=== PATIENT | female | born 1940 | race Caucasian/White ===

== ENCOUNTER 2020-05-11 09:21 | Outpatient (REF) | payer MEDICARE, SELFPAY ==
--- NOTE | 2020-05-11 | US_ITS ---
EXAMINATION: NONINVASIVE ASSESSMENT OF THE ARTERIES OF BOTH LOWER EXTREMITIES WITH PVR EXAM AND BILATERAL LOWER EXTREMITY DUPLEX CLINICAL INFORMATION: Peripheral vascular disease. TECHNIQUE: Ankle pulse volume recordings, ankle pressure measurements and ankle brachial indices were obtained of the lower extremity arterial system bilaterally in addition to duplex Doppler techniques with wave form analysis and measurement of velocities in the common femoral, profunda femoral, superficial femoral, popliteal and tibial arteries. The study was performed only at rest. COMPARISON: Previous exams most recent May 2019 FINDINGS: a) AT REST: RIGHT LE. The right ankle-brachial index is: 0.47 2. Right ankle pressure: Slightly decreased 3. Right ankle PVR waveform: Slightly dampened 4. Right direct duplex Doppler findings: There is evidence of atherosclerotic disease with vessel wall calcification. There is significant atherosclerotic plaque seen in the right common femoral artery. * Common femoral artery: 97 cm/s, Diastolic flow reversal: No * Superficial femoral artery (proximal, mid, distal): 40, 36 and 28 cm/s, Diastolic flow reversal: No * Popliteal artery: 30 cm/s, Diastolic flow reversal: No * Posterior tibial artery: Not seen. LEFT LE. The left ankle-brachial index is: 0.53 2. Left ankle pressure: slightly decreased 3. Left ankle PVR waveform: Slightly dampened 4. Left direct duplex Doppler findings: There is evidence of atherosclerotic disease with vessel wall calcification. There is significant plaque seen at the common femoral bifurcation/origin of the SFA and PFA. * Common femoral artery: 55 cm/s, Diastolic flow reversal: No * Superficial femoral artery (proximal, mid, distal): 40, 21 and 25 cm/s, Diastolic flow reversal: No * Popliteal artery: 22 cm/s, Diastolic flow reversal: No * Posterior tibial artery: Not seen. JASWINDER Reference: * >0.97-1.25 = normal - no significant arterial disease * 0.75-0.96 = mild peripheral arterial disease * 0.5-0.74 = moderate peripheral arterial disease * <0.50 = severe peripheral arterial disease US/US arterial duplex LE BI IMPRESSION: Right: The right JASWINDER is 0.47. This is decreased from 0.58 on most recent exam May 2019 suggestive of severe peripheral arterial disease. There is evidence of atherosclerotic disease with significant calcified plaque in the right common femoral artery. There are decreased peak systolic velocities and monophasic flow seen throughout the right lower extremity. Left: The left JASWINDER is 0.53. This is decreased from 0.78 most recent exam May 2019 suggestive of moderate to severe peripheral arterial disease. There is evidence of atherosclerotic disease with significant calcified plaque at the left common femoral bifurcation/SFA and PFA origin. There are decreased peak systolic velocities and monophasic flow seen throughout the left lower extremity.
== END 2020-05-11 09:22 | disposition home or self-care (01) ==
LOC: HO.US 09:21
PROVIDERS: PCP Internal Medicine; Visit Provider Surgery Vascular Surgery
DX: I73.9 Peripheral vascular disease, unspecified (principal)
CPT/HCPCS: 93923; 93925

== ENCOUNTER → 2020-05-25 13:52 | Outpatient (BNVA) | payer MEDICARE, SELFPAY | PROVIDERS: PCP Internal Medicine; Referring Provider Internal Medicine; Visit Provider Surgery Vascular Surgery | DX: I73.9 Peripheral vascular disease, unspecified (principal) | CPT/HCPCS: 99212 ==

== ENCOUNTER 2020-06-02 06:05 | Day surgery (SDC) | payer MEDICARE, BC, SELFPAY ==
[2020-06-02] VITALS (7 sets, daily range): BP systolic 138–157; BP diastolic 47–55; PULSE 52–62; RESP 14–21; TEMP 36.2–36.7; O2SAT 95–99; BMI 23.6
[2020-06-02 06:34] LABS: MANUAL DIFF FLAG NO
[2020-06-02 06:48] LABS: Prothrombin Time 11.7 SEC (10.8-13.0)
[2020-06-02 06:50] LABS: Basophils Absolute Auto 0.1 X10*3/uL (0.0-0.2); Basophils Percent Auto 0.8 % (0-2); Eosinophils Absolute Auto 0.3 X10*3/uL (0.0-0.4); Eosinophils Percent Auto 3.9 % (0-4); Hematocrit 40.1 % (37-47); Imm Gran Abs Auto 0.01 X10*3/uL (0.00-0.03); Imm Gran Pct Auto 0.1 % (0.0-0.4); Lymphocytes Absolute Auto 2.3 X10*3/uL (1.2-4.9); Lymphocytes Percent Auto 31.4 % (20-40); Mean Corpuscular HGB Conc 32.4 g/dl (31.0-35.0); Mean Corpuscular Hemoglobin 30.9 pg (27.0-33.0); Mean Corpuscular Volume 95.2 fL (80-98); Mean Platelet Volume 9.1 fL (9.4-12.3); Monocytes Absolute Auto 0.5 X10*3/uL (0.1-1.2); Monocytes Percent Auto 6.4 % (2-11); Neutrophils Absolute Auto 4.1 X10*3/uL (2.0-8.3); Neutrophils Percent Auto 57.4 % (45-73); Platelet Count 266 X10*3/uL (160-400); Red Blood Count 4.21 X10*6/uL (4.20-5.50); Red Cell Distribution Width 14.1 % (11.0-16.0); White Blood Count 7.2 X10*3/uL (4.8-10.8)
[2020-06-02 06:51] LABS: Partial Thromboplastin Time 31.5 SEC (24.1-38.0)
[2020-06-02 07:21] LABS: Anion Gap 13 (12-20); Blood Urea Nitrogen 16 mg/dL (9-16); Calcium 9.5 mg/dL (8.4-10.2); Carbon Dioxide 27 mmol/L (22-29); Chloride 105 mmol/L (96-108); Estimated Glomerular Filt Rate > 60; Glucose Random 124 mg/dL (60-115); Potassium 3.6 mmol/l (3.3-5.1); Sodium 141 mmol/L (135-145)
--- NOTE | 2020-06-02 10:09 | PC.NURSE ---
patient admitted to PACU at 0900 awake a&o. skin pwd see arteriogram flow sheet for pulse checks. right groin has glue and star closure no hematoma noted no bleeding noted. patient denies pain. 45 minutes into recovery able to obtain left posterior tibial pulse. neuro signs: oscar, hand grasp equal and strong, smile symetrical. able to barrios. continue to moniot closely. pt to be discharged [address] flores.
[2020-06-02] MEDS: Lidocaine HCl 1 % MPF 5 ML VIAL 10 ML SUBCUT (11:00)
[2020-06-02] MEDS: iohexoL 300 MG/ML 100 ML INFUS..BTL IV (11:00)
--- NOTE | 2020-06-02 11:45 | OP_ITS ---
SURGEON: Randy Osei MD INDICATIONS: Zunilda is an 79-year-old female with significant right lower extremity claudication. Her ABIs have progressively decreased. She now presents for endovascular intervention. Risks, benefits, and complications were discussed in detail with the patient. She understood and consented. PREOPERATIVE DIAGNOSIS: POSTOPERATIVE DIAGNOSIS: PROCEDURE PERFORMED: 1. Ultrasound-guided left common femoral access. 2. Aortogram. 3. Left common iliac plasty. ESTIMATED BLOOD LOSS: Minimal. COMPLICATIONS: ANESTHESIA: Local with moderate conscious sedation performed by wy for a total of 45 minutes. ASSISTANTS: SPECIMENS: None. PREPROCEDURE DIAGNOSIS: Atherosclerosis with activity limiting claudication. POSTPROCEDURE DIAGNOSIS: Atherosclerosis with activity limiting claudication. DESCRIPTION OF PROCEDURE: The patient was brought to the operating room, prior to which a timeout was called for patient identification and site verification. Bilateral groins were prepped and draped in standard surgical fashion. Under ultrasound guidance, left common femoral was accessed with micropuncture needle wire, subsequently 4-Thai sheath flush catheter was brought through the level of the aorta. Aortogram was then undertaken. Once this was done, it was noted that the right common iliac was complete total occlusion and left common iliac stent that had been placed fire had significant stenosis within. At this point, we administered 3000 units of systemic heparin, after 5 minutes of circulation time, we exchanged out for a 6-Thai sheath and through this, we plastied this area with a 6 x 40 balloon. Once this was done, we upsized to a 7-Thai sheath and angioplasty the prior left common iliac stent with a 7 x 60 balloon. This was a drug-coated balloon from [employer]. This was brought into position in under 3 minutes and insufflated for a total of 3 minutes in duration. Once this was completed, completion angiogram demonstrated good result. Catheter, wire, sheath were removed. StarClose closure device was then deployed. At the end of the case, sponge, instrument counts were correct. INTERPRETATION OF FILMS: 1. Aortogram demonstrated significantly calcified aorta with multiple stenotic areas within. 2. Right iliac was a total occlusion reconstitutes at the external iliac onto the common iliac. Left side had flow through the prior left common iliac stent, which had high-grade stenosis within, the rest had good flow all the way down to the left common femoral. Post angioplasty demonstrated excellent result. CONCLUSION: Successful plasty of left common iliac due to the use of drug-coated balloon, minimum of 6 months of Plavix will be required. Should her condition progress, ideally she would require an aortobifem. DRAINS: None. MD ITALO Roper/JANAK / [phone]
== END 2020-06-02 11:14 | disposition home or self-care (01) ==
PROVIDERS: PCP Internal Medicine; Visit Provider Surgery Vascular Surgery
DX: E11.51 Type 2 diabetes mellitus with diabetic peripheral angiopathy without gangrene (principal); I70.211 Atherosclerosis of native arteries of extremities with intermittent claudication, right leg; I77.1 Stricture of artery; I10 Essential (primary) hypertension; Z79.899 Other long term (current) drug therapy
CPT/HCPCS: 36415; 37220; 76942; 80048; 85025; 85610; 85730; 99152; 99153; C1760; C1769; C1887; C1894; C2623; J2250; J3010; Q9967

== ENCOUNTER → 2020-06-15 10:10 | Outpatient (BNVA) | payer MEDICARE, SELFPAY | PROVIDERS: PCP Internal Medicine; Visit Provider Surgery Vascular Surgery | DX: I73.9 Peripheral vascular disease, unspecified (principal) | CPT/HCPCS: 99212 ==

== ENCOUNTER 2020-09-13 08:21 | Outpatient (REF) | payer MEDICARE, BC, SELFPAY ==
--- NOTE | ~2020-09-13 | US_ITS ---
EXAMINATION: 1. NONINVASIVE ASSESSMENT OF THE ARTERIES OF BOTH LOWER EXTREMITIES WITH ANKLE PRESSURE MEASUREMENTS, ANKLE BRACHIAL INDICES, PVR MEASUREMENTS 2. BILATERAL LOWER EXTREMITY DUPLEX. 3. ABDOMINAL AORTIC ULTRASOUND CLINICAL INFORMATION: History of several vascular disease, left common iliac stent placement on 05/30/2020. History of hypertension, hyperlipidemia, diabetes. TECHNIQUE: Ankle pressure measurements, ankle brachial indices and PVR tracings were obtained of the lower extremity arterial system bilaterally. In addition, duplex Doppler techniques with wave form analysis and measurement of velocities in the abdominal aorta and bilateral iliac arteries. Triplex evaluation of the common femoral, profunda femoral, superficial femoral, popliteal and tibial arteries was also performed. The study was performed only at rest. COMPARISON: May 11, 2020 and May 29, 2019. FINDINGS: NONINVASIVE ASSESSMENT OF THE ARTERIES OF BOTH LOWER EXTREMITIES WITH ABIs: RIGHT LEG: Right ankle-brachial index: 0.66 (previously 0.47 on 05/11/2020). PVR (ankle): Moderately dampened. LEFT LEG: Ankle-brachial index: 0.97 (previously 0.53 on 05/11/2020). PVR (ankle): Normal amplitude. ABDOMINAL AORTIC ULTRASOUND: The proximal abdominal aorta measures up to 2.1 cm. Velocity within the proximal abdominal aorta is 58.7 cm/s. Velocity within the mid abdominal aorta is 55.6 cm/s. Velocity within the distal abdominal aorta is 87.6 cm/s. There is heavy calcified atherosclerosis throughout. Right: No flow is identified within the maximal and mid right common iliac artery. Flow is seen within the distal right common iliac artery just proximal to the iliac bifurcation. The right external iliac artery appears patent with a peak systolic velocity of 64.8 cm/s. Left: The left common iliac artery is patent proximal to a common iliac artery stent. The [place] artery proximal to the stent demonstrates a peak systolic velocity of 242 cm/s. Velocities through the stent range from 261-265 cm/s from proximal to distal. Velocity within the [place] artery distal to the stent is 114 cm/s. Velocities within the left external iliac artery proximally are 127 cm/s and distally 214 cm/s. BILATERAL LOWER EXTREMITY DUPLEX ULTRASOUND: RIGHT LEG: Common femoral artery: 117 cm/s, Diastolic flow reversal: Yes Profunda femoris artery: 49 cm/s, Diastolic flow reversal: Yes Superficial femoral artery (proximal): 45 cm/s, Diastolic flow reversal: No Superficial femoral artery (mid): 43 cm/s, Diastolic flow reversal: Yes Superficial femoral artery (distal): 43 cm/s, Diastolic flow reversal: No Popliteal artery: 39 cm/s, Diastolic flow reversal: No Posterior tibial artery: 15 cm/s, Diastolic flow reversal: No LEFT LEG: Common femoral artery: 114 cm/s, Diastolic flow reversal: Yes Profunda femoris artery: 77 cm/s, Diastolic flow reversal: Yes Superficial femoral artery (proximal): 356 cm/s, Diastolic flow reversal: No Superficial femoral artery (mid): 85 cm/s, Diastolic flow reversal: Yes Superficial femoral artery (distal): 83 cm/s, Diastolic flow reversal: Yes Popliteal artery: 65 cm/s, Diastolic flow reversal: Yes Posterior tibial artery: 49 cm/s, Diastolic flow reversal: Yes US/US JASWINDER complete IMPRESSION: RIGHT LEG: JASWINDER 0.66, previously 0.47 on 05/11/2020. The proximal and mid right common iliac artery appears occluded. Flow to the distal right common iliac artery is likely via collaterals. The right external iliac artery is patent. Focally elevated velocity within the right common femoral artery suggests a hemodynamically significant stenosis. LEFT LEG: JASWINDER 0.97, previously 0.53 on 05/11/2020. A left common iliac artery stent is patent; however, velocities are significantly elevated within the stent. There is a severe stenosis within the proximal left SFA. JASWINDER Reference: - >0.97-1.25 = normal - no significant arterial disease - 0.75-0.96 = mild peripheral arterial disease - 0.5-0.74 = moderate peripheral arterial disease - <0.50 = severe peripheral arterial disease
--- NOTE | ~2020-09-13 | US_ITS ---
EXAMINATION: 1. NONINVASIVE ASSESSMENT OF THE ARTERIES OF BOTH LOWER EXTREMITIES WITH ANKLE PRESSURE MEASUREMENTS, ANKLE BRACHIAL INDICES, PVR MEASUREMENTS 2. BILATERAL LOWER EXTREMITY DUPLEX. 3. ABDOMINAL AORTIC ULTRASOUND CLINICAL INFORMATION: History of several vascular disease, left common iliac stent placement on 05/30/2020. History of hypertension, hyperlipidemia, diabetes. TECHNIQUE: Ankle pressure measurements, ankle brachial indices and PVR tracings were obtained of the lower extremity arterial system bilaterally. In addition, duplex Doppler techniques with wave form analysis and measurement of velocities in the abdominal aorta and bilateral iliac arteries. Triplex evaluation of the common femoral, profunda femoral, superficial femoral, popliteal and tibial arteries was also performed. The study was performed only at rest. COMPARISON: May 11, 2020 and May 29, 2019. FINDINGS: NONINVASIVE ASSESSMENT OF THE ARTERIES OF BOTH LOWER EXTREMITIES WITH ABIs: RIGHT LEG: Right ankle-brachial index: 0.66 (previously 0.47 on 05/11/2020). PVR (ankle): Moderately dampened. LEFT LEG: Ankle-brachial index: 0.97 (previously 0.53 on 05/11/2020). PVR (ankle): Normal amplitude. ABDOMINAL AORTIC ULTRASOUND: The proximal abdominal aorta measures up to 2.1 cm. Velocity within the proximal abdominal aorta is 58.7 cm/s. Velocity within the mid abdominal aorta is 55.6 cm/s. Velocity within the distal abdominal aorta is 87.6 cm/s. There is heavy calcified atherosclerosis throughout. Right: No flow is identified within the maximal and mid right common iliac artery. Flow is seen within the distal right common iliac artery just proximal to the iliac bifurcation. The right external iliac artery appears patent with a peak systolic velocity of 64.8 cm/s. Left: The left common iliac artery is patent proximal to a common iliac artery stent. The [place] artery proximal to the stent demonstrates a peak systolic velocity of 242 cm/s. Velocities through the stent range from 261-265 cm/s from proximal to distal. Velocity within the [place] artery distal to the stent is 114 cm/s. Velocities within the left external iliac artery proximally are 127 cm/s and distally 214 cm/s. BILATERAL LOWER EXTREMITY DUPLEX ULTRASOUND: RIGHT LEG: Common femoral artery: 117 cm/s, Diastolic flow reversal: Yes Profunda femoris artery: 49 cm/s, Diastolic flow reversal: Yes Superficial femoral artery (proximal): 45 cm/s, Diastolic flow reversal: No Superficial femoral artery (mid): 43 cm/s, Diastolic flow reversal: Yes Superficial femoral artery (distal): 43 cm/s, Diastolic flow reversal: No Popliteal artery: 39 cm/s, Diastolic flow reversal: No Posterior tibial artery: 15 cm/s, Diastolic flow reversal: No LEFT LEG: Common femoral artery: 114 cm/s, Diastolic flow reversal: Yes Profunda femoris artery: 77 cm/s, Diastolic flow reversal: Yes Superficial femoral artery (proximal): 356 cm/s, Diastolic flow reversal: No Superficial femoral artery (mid): 85 cm/s, Diastolic flow reversal: Yes Superficial femoral artery (distal): 83 cm/s, Diastolic flow reversal: Yes Popliteal artery: 65 cm/s, Diastolic flow reversal: Yes Posterior tibial artery: 49 cm/s, Diastolic flow reversal: Yes US/US arterial duplex LE BI IMPRESSION: RIGHT LEG: JASWINDER 0.66, previously 0.47 on 05/11/2020. The proximal and mid right common iliac artery appears occluded. Flow to the distal right common iliac artery is likely via collaterals. The right external iliac artery is patent. Focally elevated velocity within the right common femoral artery suggests a hemodynamically significant stenosis. LEFT LEG: JASWINDER 0.97, previously 0.53 on 05/11/2020. A left common iliac artery stent is patent; however, velocities are significantly elevated within the stent. There is a severe stenosis within the proximal left SFA. JASWINDER Reference: - >0.97-1.25 = normal - no significant arterial disease - 0.75-0.96 = mild peripheral arterial disease - 0.5-0.74 = moderate peripheral arterial disease - <0.50 = severe peripheral arterial disease
--- NOTE | ~2020-09-13 | US_ITS ---
EXAMINATION: 1. NONINVASIVE ASSESSMENT OF THE ARTERIES OF BOTH LOWER EXTREMITIES WITH ANKLE PRESSURE MEASUREMENTS, ANKLE BRACHIAL INDICES, PVR MEASUREMENTS 2. BILATERAL LOWER EXTREMITY DUPLEX. 3. ABDOMINAL AORTIC ULTRASOUND CLINICAL INFORMATION: History of several vascular disease, left common iliac stent placement on 05/30/2020. History of hypertension, hyperlipidemia, diabetes. TECHNIQUE: Ankle pressure measurements, ankle brachial indices and PVR tracings were obtained of the lower extremity arterial system bilaterally. In addition, duplex Doppler techniques with wave form analysis and measurement of velocities in the abdominal aorta and bilateral iliac arteries. Triplex evaluation of the common femoral, profunda femoral, superficial femoral, popliteal and tibial arteries was also performed. The study was performed only at rest. COMPARISON: May 11, 2020 and May 29, 2019. FINDINGS: NONINVASIVE ASSESSMENT OF THE ARTERIES OF BOTH LOWER EXTREMITIES WITH ABIs: RIGHT LEG: Right ankle-brachial index: 0.66 (previously 0.47 on 05/11/2020). PVR (ankle): Moderately dampened. LEFT LEG: Ankle-brachial index: 0.97 (previously 0.53 on 05/11/2020). PVR (ankle): Normal amplitude. ABDOMINAL AORTIC ULTRASOUND: The proximal abdominal aorta measures up to 2.1 cm. Velocity within the proximal abdominal aorta is 58.7 cm/s. Velocity within the mid abdominal aorta is 55.6 cm/s. Velocity within the distal abdominal aorta is 87.6 cm/s. There is heavy calcified atherosclerosis throughout. Right: No flow is identified within the maximal and mid right common iliac artery. Flow is seen within the distal right common iliac artery just proximal to the iliac bifurcation. The right external iliac artery appears patent with a peak systolic velocity of 64.8 cm/s. Left: The left common iliac artery is patent proximal to a common iliac artery stent. The [place] artery proximal to the stent demonstrates a peak systolic velocity of 242 cm/s. Velocities through the stent range from 261-265 cm/s from proximal to distal. Velocity within the [place] artery distal to the stent is 114 cm/s. Velocities within the left external iliac artery proximally are 127 cm/s and distally 214 cm/s. BILATERAL LOWER EXTREMITY DUPLEX ULTRASOUND: RIGHT LEG: Common femoral artery: 117 cm/s, Diastolic flow reversal: Yes Profunda femoris artery: 49 cm/s, Diastolic flow reversal: Yes Superficial femoral artery (proximal): 45 cm/s, Diastolic flow reversal: No Superficial femoral artery (mid): 43 cm/s, Diastolic flow reversal: Yes Superficial femoral artery (distal): 43 cm/s, Diastolic flow reversal: No Popliteal artery: 39 cm/s, Diastolic flow reversal: No Posterior tibial artery: 15 cm/s, Diastolic flow reversal: No LEFT LEG: Common femoral artery: 114 cm/s, Diastolic flow reversal: Yes Profunda femoris artery: 77 cm/s, Diastolic flow reversal: Yes Superficial femoral artery (proximal): 356 cm/s, Diastolic flow reversal: No Superficial femoral artery (mid): 85 cm/s, Diastolic flow reversal: Yes Superficial femoral artery (distal): 83 cm/s, Diastolic flow reversal: Yes Popliteal artery: 65 cm/s, Diastolic flow reversal: Yes Posterior tibial artery: 49 cm/s, Diastolic flow reversal: Yes US/US abdominal aortic aneurysm IMPRESSION: RIGHT LEG: JASWINDER 0.66, previously 0.47 on 05/11/2020. The proximal and mid right common iliac artery appears occluded. Flow to the distal right common iliac artery is likely via collaterals. The right external iliac artery is patent. Focally elevated velocity within the right common femoral artery suggests a hemodynamically significant stenosis. LEFT LEG: JASWINDER 0.97, previously 0.53 on 05/11/2020. A left common iliac artery stent is patent; however, velocities are significantly elevated within the stent. There is a severe stenosis within the proximal left SFA. JASWINDER Reference: - >0.97-1.25 = normal - no significant arterial disease - 0.75-0.96 = mild peripheral arterial disease - 0.5-0.74 = moderate peripheral arterial disease - <0.50 = severe peripheral arterial disease
== END 2020-09-13 08:22 | disposition home or self-care (01) ==
LOC: HO.US 08:21
PROVIDERS: PCP Internal Medicine; Visit Provider Surgery Vascular Surgery
DX: I65.29 Occlusion and stenosis of unspecified carotid artery (principal); I70.213 Atherosclerosis of native arteries of extremities with intermittent claudication, bilateral legs; I73.9 Peripheral vascular disease, unspecified
CPT/HCPCS: 76706; 93923; 93925

== ENCOUNTER → 2020-09-28 08:48 | Outpatient (BNVA) | payer MEDICARE, BC, SELFPAY | PROVIDERS: PCP Internal Medicine; Visit Provider Surgery Vascular Surgery | DX: I73.9 Peripheral vascular disease, unspecified (principal); I65.29 Occlusion and stenosis of unspecified carotid artery | CPT/HCPCS: 99212 ==

== ENCOUNTER 2021-03-17 09:50 | Outpatient (REF) | payer MEDICARE, BC, SELFPAY ==
--- NOTE | ~2021-03-17 | US_ITS ---
EXAMINATION: 1. NON-INVASIVE ASSESSMENT OF THE ARTERIES OF BOTH LOWER EXTREMITIES WITH ANKLE PRESSURE MEASUREMENTS, ANKLE BRACHIAL INDICES, PVR MEASUREMENTS 2. BILATERAL LOWER EXTREMITY DUPLEX. 3. ABDOMINAL AORTIC ULTRASOUND CLINICAL INFORMATION: History of several vascular disease, left common iliac stent placement on 05/30/2020. History of hypertension, hyperlipidemia, diabetes. TECHNIQUE: Ankle pressure measurements, ankle brachial indices and PVR tracings were obtained of the lower extremity arterial system bilaterally. In addition, duplex Doppler techniques with wave form analysis and measurement of velocities in the abdominal aorta and bilateral iliac arteries. Triplex evaluation of the common femoral, profunda femoral, superficial femoral, popliteal and tibial arteries was also performed. The study was performed only at rest. COMPARISON: 09/13/2020, 05/11/2020 and 05/29/2019. FINDINGS: NONINVASIVE ASSESSMENT OF THE ARTERIES OF BOTH LOWER EXTREMITIES WITH ABIs: RIGHT LEG: Right ankle-brachial index: 0.62, previously 0.66 PVR (ankle): Minimally dampened. LEFT LEG: Ankle-brachial index: 1.03, previously 0.97 PVR (ankle): Normal amplitude. ABDOMINAL AORTIC ULTRASOUND: Proximal abdominal aorta: PSV 41 cm/s, previously 58.7 Mid abdominal aorta: PSV 200 cm/s, previously 35.6 Distal abdominal aorta: PSV 137 cm/s, previously 87.6 There is heavy calcification throughout the abdominal aorta. ILIAC ARTERIES: Right: Distal common iliac artery: PSV 132 cm/s External iliac artery: PSV 87 cm/s Left: Distal common iliac artery: PSV 103 cm/s External iliac artery: PSV 215, previously to 214 cm/s BILATERAL LOWER EXTREMITY DUPLEX ULTRASOUND: RIGHT LEG: Common femoral artery: 113 cm/s, Diastolic flow reversal: No Profunda femoris artery: 40 cm/s, Diastolic flow reversal: No Superficial femoral artery (proximal): 54 cm/s, Diastolic flow reversal: No Superficial femoral artery (mid): 46 cm/s, Diastolic flow reversal: No Superficial femoral artery (distal): 41 cm/s, Diastolic flow reversal: No Popliteal artery: 38 cm/s, Diastolic flow reversal: No Posterior tibial artery: 14 cm/s, Diastolic flow reversal: No LEFT LEG: Common femoral artery: 123 cm/s, Diastolic flow reversal: Yes Profunda femoris artery: 147 cm/s, Diastolic flow reversal: Yes Superficial femoral artery (proximal): 327 cm/s, Diastolic flow reversal: No Superficial femoral artery (mid): 90 cm/s, Diastolic flow reversal: Yes Superficial femoral artery (distal): 82 cm/s, Diastolic flow reversal: Yes Popliteal artery: 68 cm/s, Diastolic flow reversal: Yes Posterior tibial artery: 62 cm/s, Diastolic flow reversal: Yes US/US abdominal aortic aneurysm IMPRESSION: RIGHT LEG: JASWINDER 0.62, previously 0.66. Monophasic waveforms throughout the right lower extremity are consistent with inflow stenosis. No hemodynamically significant outflow stenosis identified. LEFT LEG: JASWINDER 1.03, previously 0.97. No significant change from the comparison examination. High-grade stenosis within the proximal SFA is redemonstrated. AORTA: The mid aortic velocity is increased to 200 cm/s, previously 35.6 cm/s. JASWINDER Reference: - >0.97-1.25 = normal - no significant arterial disease - 0.75-0.96 = mild peripheral arterial disease - 0.5-0.74 = moderate peripheral arterial disease - <0.50 = severe peripheral arterial disease
== END 2021-03-17 09:51 | disposition home or self-care (01) ==
LOC: HO.US 09:50
PROVIDERS: PCP Internal Medicine; Visit Provider Surgery Vascular Surgery
DX: I73.9 Peripheral vascular disease, unspecified (principal); I10 Essential (primary) hypertension; E78.5 Hyperlipidemia, unspecified; E11.9 Type 2 diabetes mellitus without complications; Z95.820 Peripheral vascular angioplasty status with implants and grafts
CPT/HCPCS: 76706; 93923; 93925

== ENCOUNTER → 2021-03-29 08:56 | Outpatient (BNVA) | payer MEDICARE, BC, SELFPAY | PROVIDERS: PCP Internal Medicine; Visit Provider Surgery Vascular Surgery | DX: I73.9 Peripheral vascular disease, unspecified (principal) | CPT/HCPCS: 99212 ==